=== PATIENT | female | born 1935 | race Caucasian/White ===

== ENCOUNTER 2020-04-26 06:56 | Inpatient (IN) | payer MEDICARE, OTHER ==
[2020-04-19 12:14] LABS: BASOPHILS % (AUTO) 0.8 % (0-1); EOSINOPHILS # (AUTO) 0.1 X10'3 (0-0.9); EOSINOPHILS % (AUTO) 2.3 % (0-6); LYMPHOCYTES # (AUTO) 1.6 X10'3 (1.1-4.8); LYMPHOCYTES % (AUTO) 29.3 % (21-51); MEAN CORPUSCULAR HEMOGLOBIN 28.1 PG (27.0-31.0); MEAN CORPUSCULAR HGB CONC 32.3 g/dL (33.0-36.5); MEAN PLATELET VOLUME 7.4 FL (7.4-10.4); MONOCYTES # (AUTO) 0.4 X10'3 (0-0.9); NEUTROPHILS # (AUTO) 3.3 X10'3 (1.8-7.7); NEUTROPHILS % (AUTO) 59.6 % (42-75); PRE OP HEMATOCRIT 35.8 % (35.0-45.0); PRE OP HEMOGLOBIN 11.6 g/dL (12.0-16.0); PRE OP PLATELET COUNT 271 X10'3 (140-440); RED BLOOD COUNT 4.11 X10'6 (4.20-5.60); RED CELL DISTRIBUTION WIDTH 16.3 % (11.5-14.5)
[2020-04-19 12:30] LABS: BLOOD UREA NITROGEN 23 MG/DL (7-18); BUN/CREATININE RATIO 18.3 (6.6-38.0); CHLORIDE 103 MMOL/L (99-107); CREATININE 1.26 MG/DL (0.40-0.90); PRE OP ANION GAP 6 (8-16); PRE OP GLUCOSE 86 MG/DL (70-104); PRE OP POTASSIUM 4.8 MMOL/L (3.4-5.1); PRE OP SODIUM 137 MMOL/L (135-145); TOTAL CARBON DIOXIDE 28.1 MMOL/L (24-32)
[2020-04-19 12:31] LABS: ALBUMIN 3.4 G/DL (3.4-5.0); ALBUMIN/GLOBULIN RATIO 0.9 (1.1-1.5); ALKALINE PHOSPHATASE 72 IU/L (46-116); CALCIUM 8.9 MG/DL (8.5-10.1); PRE OP ALT 23 U/L (30-65); PRE OP AST 25 U/L (10-37); PRE OP BILIRUB, TOTAL 0.3 MG/DL (0.0-1.0); TOTAL PROTEIN 7.4 G/DL (6.4-8.2); eGFR 41 ML/MIN
[2020-04-26] VITALS (23 sets, daily range): BP systolic 114–153; BP diastolic 49–64
[~2020-04-26] VITALS: Ht 157.5 cm; Wt 60.5 kg
[~2020-04-26 06:56] MED LIST: ERGO400T7 PO; HYDR-3973 PO; MILK1CAP3 PO; MULT-1130 PO; MULT400C3 PO; PANT40TA54 PO; PREVCR VG; VANCOMYCIN INJ 1000 MG in NORMAL SALINE 250ml IV.SOLN IV ONE; WARF4TAB69 PO; clindamycin-Cleocin 900mg/D5W 50 ML IV ONE; famotidine 20mg tablet PO ONE; ringers solution, lacted 1,000 ML IV SCH; tranexamic acid inj. 1,000 MG in normal saline 100 ML IV ONE
[2020-04-26 09:48] LABS: PARTIAL THROMBOPLASTIN TIME 27 SECONDS (22-32)
[2020-04-26] MEDS ORDERED: midazolam 2 mg/2 ml injection ONE (10:40)
[2020-04-26] MEDS ORDERED: fentaNYL/PF 50MCG/1 ML 2ML syringe ONE ×2 (10:40→12:24)
[2020-04-26] MEDS ORDERED: ROPIVAcaine 0.5% (5mg/ml) 30ml vial ONE ×2 (11:14→13:09)
[2020-04-26] MEDS ORDERED: morphine 2 MG/ML inj. syringe IV PRN (12:15)
[2020-04-26] MEDS ORDERED: HYDROmorphone inj. 0.5 MG/0.5 ML DISP.SYRIN IV PRN ×2 (12:15→13:40)
[2020-04-26] MEDS ORDERED: ringers solution, lacted 1,000 ML IV SCH (12:15)
[2020-04-26] MEDS ORDERED: ROPIVAcaine 0.2% (10 MG/5 ML) BOLUS INJECTION INTERSCALE PRN (12:15)
[2020-04-26] MEDS ORDERED: ondansetron/PF 4mg/2ml inj IV PRN ×2 (12:15→13:40)
[2020-04-26] MEDS ORDERED: tranexamic acid 100mg/ml inj. ONE (12:15)
[2020-04-26] MEDS ORDERED: ePHEDrine 50MG/ML INJ. ONE (13:09)
[2020-04-26] MEDS ORDERED: phenylephrine 10mg/ml inj. ONE (13:09)
[2020-04-26] MEDS ORDERED: propofol inj 20 ML IV ONE (13:10)
[2020-04-26] MEDS ORDERED: LIDOcaine 1%/PF 5ML 10 MG/ML VIAL ONE (13:10)
--- NOTE | 2020-04-26 13:35 | NUR ---
Received from OR via BED, accompanied by Anesthesiologist DR MIDDLETON and report given by Anesthesiologist. PT DROWSY, DENIES PAIN, RIGHT SHOULDER W/DRSG, SHOULDER WRAP, SLING ICE PACK CDI. Addendum: 04/26/20 at 1617 by Sarah Hadley RN Amended: Links added.
[2020-04-26] MEDS ORDERED: HYDROmorphone 1 mg/ml syringe IV PRN (13:40)
[2020-04-26] MEDS ORDERED: diphenhydrAMINE 25mg capsule PO PRN ×2 (13:40)
[2020-04-26] MEDS ORDERED: HYDROcodone/acetaminophen 10/325mg tab PO PRN (13:40)
[2020-04-26] MEDS ORDERED: bisacodyl 10mg suppository rectal RC PRN (13:40)
[2020-04-26] MEDS ORDERED: magnesium hydroxide 30ml (MOM) UD suspension PO PRN (13:40)
[2020-04-26] MEDS ORDERED: acetaminophen 325mg tablet PO PRN (13:40)
[2020-04-26] MEDS ORDERED: oxyCODONE IR 5mg (immed. release) tablet PO PRN (13:40)
[2020-04-26] MEDS ORDERED: tranexamic acid inj. 0 MG in normal saline 100ml IV soln 100 ML IV ONE (13:40)
[2020-04-26] MEDS: ROPIVAcaine 0.2%/PF PUMP/bolus 550 ML INTERSCALE SCH (14:14)
--- NOTE | 2020-04-26 15:35 | NUR ---
Report called to receiving nurse. Transferred via BED, PT WEARING BILAT HEARING AIDS, 2 BAGS OF PERSONAL Belongings SENT W/PT TO ROOM 401, RECEIVING RN AT BEDSIDE TO RECEIVE PT, BLL, CALL LIGHT GIVEN, SIDE RAILS UP X 2. . Special Issues communicated to receiving nurse. Addendum: 04/26/20 at 1618 by Sarah Hadley RN Amended: Links added.
[2020-04-26] MEDS: acetaminophen 325mg tablet PO SCH ×2 (16:00→21:09)
--- NOTE | 2020-04-26 16:05 | NUR ---
Patient just arrived to her room from Recovery Room accompanied by ALEXEI June with patient' s belongings with her. Patient alert, oriented x 4. Patient denies pain at this time. Patient has onQ system s/p right shoulder arthroplasty. I asked Charge Nurse Krys to help me with educating this patient in using the onQ system as I did not have training on how to use this or how to instruct patient about this. Krys said she will help me explain it to the patient at bedside when she get a chance. Patient hooked to vital sign machine to monitor post op vitals. Right finger feels tingly per patient.
[2020-04-26] MEDS ORDERED: TRANEXAMIC ACID 1 GM IN NACL,ISO-OS 100 ML IV ONE (17:00)
--- NOTE | 2020-04-26 17:00 | NUR ---
Charge nurse Krys taught patient how to use the onQ system to manage her pain
[2020-04-26] MEDS: ceFAZolin 1GM/D5W- ADD-VANTAGE 50 ML IV SCH (17:25)
[2020-04-26] MEDS: oxyCODONE IR 5mg (immed. release) tablet PO PRN ×2 (17:37→22:40)
--- NOTE | 2020-04-26 18:51 | NUR ---
Problems reprioritized. Patient report given, questions answered & plan of care reviewed with Maribell HUGHES.
[2020-04-26] MEDS ORDERED: vancomycin/NS 1 GM ADD-VANTAGE 250 ML IV SCH (20:00)
[2020-04-26] MEDS: potassium cl 20mEq in 1/2 NS 1,000 ML IV SCH ×2 (21:07→21:40)
[2020-04-26] MEDS: sennosides 8.6mg tablet PO SCH (21:08)
[2020-04-26] MEDS: pantoprazole 40mg Tablet.DR PO SCH (21:08)
[2020-04-26] MEDS: warfarin 4mg tablet PO SCH (22:41)
[2020-04-27 02:00] VITALS: BP 105/48
[2020-04-27] MEDS: acetaminophen 325mg tablet PO SCH ×4 (02:00→20:57)
[2020-04-27] MEDS: ceFAZolin 1GM/D5W- ADD-VANTAGE 50 ML IV SCH (02:18)
[2020-04-27] MEDS: oxyCODONE IR 5mg (immed. release) tablet PO PRN ×5 (04:22→23:03)
[2020-04-27 05:00] VITALS: BP 134/53
[2020-04-27 06:30] LABS: ANION GAP 8 (8-16); CHLORIDE 102 MMOL/L (99-107); POTASSIUM 4.5 MMOL/L (3.5-5.1); SODIUM 135 MMOL/L (135-145); TOTAL CARBON DIOXIDE 25.1 MMOL/L (24-32)
--- NOTE | 2020-04-27 06:37 | NUR ---
REPORT GIVEN TO SAUL TURNER.
[2020-04-27 06:50] LABS: BASOPHILS % (AUTO) 0.3 % (0-1); EOSINOPHILS # (AUTO) 0.2 X10'3 (0-0.9); EOSINOPHILS % (AUTO) 2.5 % (0-6); HEMATOCRIT 31.7 % (35.0-45.0); HEMOGLOBIN 10.3 g/dl (12.0-16.0); LYMPHOCYTES # (AUTO) 0.5 X10'3 (1.1-4.8); LYMPHOCYTES % (AUTO) 7.8 % (21-51); MEAN CORPUSCULAR HEMOGLOBIN 28.4 PG (27.0-31.0); MEAN CORPUSCULAR HGB CONC 32.5 g/dL (33.0-36.5); MEAN CORPUSCULAR VOLUME 87.4 FL (78-98); MEAN PLATELET VOLUME 7.8 FL (7.4-10.4); MONOCYTES # (AUTO) 0.5 X10'3 (0-0.9); MONOCYTES % (AUTO) 8.5 % (2-12); NEUTROPHILS # (AUTO) 4.9 X10'3 (1.8-7.7); NEUTROPHILS % (AUTO) 80.9 % (42-75); PLATELET COUNT 184 X10'3 (140-440); RED BLOOD COUNT 3.62 X10'6 (4.20-5.60); RED CELL DISTRIBUTION WIDTH 16.2 % (11.5-14.5)
--- NOTE | 2020-04-27 06:57 | NUR ---
Patient in room ORTHO 4015B. I have received report from SAUL Reyna and had the opportunity to ask questions and assume patient care.
[2020-04-27] MEDS ORDERED: MILK THISTLE SEED EXTRACT PO SCH (08:00)
[2020-04-27] MEDS ORDERED: MULTIVIT MIN PO SCH (08:00)
[2020-04-27] MEDS ORDERED: non-formulary drug (Multivits-Min/Folic Acid/Biot (Hair, Skin & Nails Caplet) 1 TAB) PO SCH (08:00)
[2020-04-27] MEDS ORDERED: VIT K1 PO SCH (08:00)
[2020-04-27] MEDS ORDERED: FOLIC ACID PO SCH (08:00)
[2020-04-27] MEDS ORDERED: [UNRECOGNIZED DRUG - OTHER] PO SCH (08:00)
[2020-04-27] MEDS: vitamin D (cholecalciferol) 1,000 unit tablet PO SCH (08:54)
[2020-04-27] MEDS: potassium cl 20mEq in 1/2 NS 1,000 ML IV SCH ×3 (09:00→21:06)
[2020-04-27 10:00] VITALS: BP 106/38
--- NOTE | 2020-04-27 12:49 | NUR ---
Joint Replacement Consult: Pt s/p R shoulder surgery. Pt unable to wake from sleeping during RD visit; written high protein ed w/ RD contact information placed at bedside. RN reports pt has no issues chewing/swallowing at this time. To f/u 05/01 for initial assessment. Addendum: 04/27/20 at [address] Amended: Links added.
[2020-04-27 14:00] VITALS: BP 91/30
[2020-04-27 18:00] VITALS: BP 118/43
--- NOTE | 2020-04-27 18:18 | NUR ---
Report received from Jessy HUGHES.
--- NOTE | 2020-04-27 18:18 | NUR ---
Problems reprioritized. Patient report given, questions answered & plan of care reviewed with SAUL Pitts.
[2020-04-27] MEDS: pantoprazole 40mg Tablet.DR PO SCH (20:56)
[2020-04-27] MEDS: warfarin 4mg tablet PO SCH (20:57)
[2020-04-27] MEDS: sennosides 8.6mg tablet PO SCH (20:57)
[2020-04-27 22:00] VITALS: BP 161/50
[2020-04-28] MEDS: acetaminophen 325mg tablet PO SCH ×2 (02:00→09:06)
[2020-04-28] MEDS: oxyCODONE IR 5mg (immed. release) tablet PO PRN ×4 (04:54→21:56)
[2020-04-28 06:00] VITALS: BP 107/61
[2020-04-28 06:31] LABS: EOSINOPHILS # (AUTO) 0.3 X10'3 (0-0.9); LYMPHOCYTES # (AUTO) 1.4 X10'3 (1.1-4.8)
[2020-04-28 06:33] LABS: BASOPHILS % (AUTO) 0.5 % (0-1); HEMATOCRIT 28.3 % (35.0-45.0); HEMOGLOBIN 9.3 g/dl (12.0-16.0); LYMPHOCYTES % (AUTO) 22.1 % (21-51); MEAN CORPUSCULAR HEMOGLOBIN 28.8 PG (27.0-31.0); MEAN CORPUSCULAR VOLUME 87.2 FL (78-98); MEAN PLATELET VOLUME 7.9 FL (7.4-10.4); MONOCYTES % (AUTO) 15.9 % (2-12); NEUTROPHILS # (AUTO) 3.5 X10'3 (1.8-7.7); NEUTROPHILS % (AUTO) 56.5 % (42-75); PLATELET COUNT 179 X10'3 (140-440); RED BLOOD COUNT 3.24 X10'6 (4.20-5.60); RED CELL DISTRIBUTION WIDTH 15.7 % (11.5-14.5); WHITE BLOOD COUNT 6.2 X10'3 (4.5-11.0)
--- NOTE | 2020-04-28 06:50 | NUR ---
Patient in room [facility]TH[facility] 4015B. I have received report from SAUL PICHARDO and had the opportunity to ask questions and assume patient care.
[2020-04-28 07:43] LABS: PLATELET ESTIMATE NORMAL; TOTAL CELLS COUNTED 100
[2020-04-28] MEDS: vitamin D (cholecalciferol) 1,000 unit tablet PO SCH (09:05)
[2020-04-28 10:00] VITALS: BP 124/70
[2020-04-28] MEDS ORDERED: acetaminophen 325mg tablet PO PRN (13:40)
[2020-04-28] MEDS: ROPIVAcaine 0.2%/PF PUMP/bolus 550 ML INTERSCALE SCH (17:38)
[2020-04-28 18:00] VITALS: BP 126/51
--- NOTE | 2020-04-28 18:22 | NUR ---
Problems reprioritized. Patient report given, questions answered & plan of care reviewed with SAUL ANAYA.
--- NOTE | 2020-04-28 18:41 | NUR ---
Patient in room ORTHO 4015. I have received report from Jessy HUGHES and had the opportunity to ask questions and assume patient care.
[2020-04-28] MEDS: pantoprazole 40mg Tablet.DR PO SCH (20:14)
[2020-04-28] MEDS: sennosides 8.6mg tablet PO SCH (20:15)
[2020-04-28] MEDS: warfarin 4mg tablet PO SCH (20:16)
[2020-04-28 22:00] VITALS: BP 154/50
[2020-04-29] MEDS: oxyCODONE IR 5mg (immed. release) tablet PO PRN ×3 (02:12→10:55)
[2020-04-29 06:00] VITALS: BP 106/43
--- NOTE | 2020-04-29 06:57 | NUR ---
Patient in room ORTHO 4015B. I have received report from SAUL Resendez and had the opportunity to ask questions and assume patient care.
[2020-04-29 07:25] LABS: BASOPHILS % (AUTO) 0.5 % (0-1); EOSINOPHILS # (AUTO) 0.2 X10'3 (0-0.9); EOSINOPHILS % (AUTO) 3.4 % (0-6); HEMATOCRIT 27.1 % (35.0-45.0); HEMOGLOBIN 8.9 g/dl (12.0-16.0); LYMPHOCYTES # (AUTO) 1.4 X10'3 (1.1-4.8); LYMPHOCYTES % (AUTO) 24.7 % (21-51); MEAN CORPUSCULAR HEMOGLOBIN 28.6 PG (27.0-31.0); MEAN CORPUSCULAR HGB CONC 32.8 g/dL (33.0-36.5); MEAN CORPUSCULAR VOLUME 87.1 FL (78-98); MEAN PLATELET VOLUME 7.5 FL (7.4-10.4); MONOCYTES # (AUTO) 0.8 X10'3 (0-0.9); MONOCYTES % (AUTO) 13.2 % (2-12); NEUTROPHILS # (AUTO) 3.4 X10'3 (1.8-7.7); NEUTROPHILS % (AUTO) 58.2 % (42-75); PLATELET COUNT 187 X10'3 (140-440); RED BLOOD COUNT 3.11 X10'6 (4.20-5.60); RED CELL DISTRIBUTION WIDTH 16.2 % (11.5-14.5); WHITE BLOOD COUNT 5.8 X10'3 (4.5-11.0)
[2020-04-29] MEDS ORDERED: estrogens, conjug. vaginal cream 45gm tube VG SCH (08:00)
[2020-04-29] MEDS: vitamin D (cholecalciferol) 1,000 unit tablet PO SCH (08:08)
[2020-04-29 10:26] VITALS: BP 143/57
--- NOTE | 2020-04-29 13:19 | NUR ---
DC INSTRUCTIONS GIVEN TO PT, QUESTIONS ANSWERED. IV REMOVED, CANULA INTACT, NO COMPLICATIONS. PT DRESSED LOWER BODY, ASSISTED WITH UPPER BODY. PERSONAL ITEMS GATHERED AND BAGGED. PT ASSISTED INTO WHEELCHAIR. PT WHEELED DOWN TO DAUGHTER IN PRIVATE VEHICLE IN STABLE CONDITION.
== END 2020-04-29 12:30 | disposition home or self-care (01) | DRG 483 ==
LOC: PAS IN 06:56 → UNDOADMIN 06:56 → EDSTATUS 08:45 → PAS IN 13:38 → ORTHO 4S 15:55
PROVIDERS: ADMIT Orthopaedic Surgery; ATTEND Orthopaedic Surgery
PROC: 0RRJ00Z Replacement of Right Shoulder Joint with Reverse Ball and Socket Synthetic Substitute, Open Approach (ICD-10-PCS; principal; 2020-04-29)
PROC: 0LS30ZZ Reposition Right Upper Arm Tendon, Open Approach (ICD-10-PCS; 2020-04-29)
DX: M75.101 Unspecified rotator cuff tear or rupture of right shoulder, not specified as traumatic (principal); M19.011 Primary osteoarthritis, right shoulder; D50.0 Iron deficiency anemia secondary to blood loss (chronic); Z79.899 Other long term (current) drug therapy; Z20.828 Contact with and (suspected) exposure to other viral communicable diseases
CPT/HCPCS: 36415; 71046; 80051; 80053; 82948; 85007; 85025; 85610; 85730; 87081; 87635; 93005; 97110; 97116; 97162; 97530; A4565; A4618; A7000; C1776; G0378; J0690; J2250; J2270; J2370; J2704; J2795; J3010; J3370; J3480; J3490; J7120